=== PATIENT | male | born 1980 | race Caucasian/White ===

== ENCOUNTER → 2019-02-10 09:12 | Outpatient (CLI) | payer SELFPAY ==
[2019-02-10 09:59] LABS: Apearance,Urine Clear (Clear); Bilirubin,Urine Negative (Negative); Blood, Urine Trace (Negative); Color,Urine Yellow (Yellow); Glucose,Urine (UA) Negative (Negative); Ketones,Urine Negative (Negative); Protein,Urine Negative (Negative); Specific Gravity, Urine 1.015 (1.005-1.030); UTC Leukocyte Esterase,Urine Negative (Negative); UTC Nitrate,Urine Negative (Negative); Urobilinogen,Urine 0.2 EU/dl (0.2)
== END ==
PROVIDERS: Visit Provider Nurse Practitioner Family
DX: Z02.4 Encounter for examination for driving license (principal)
CPT/HCPCS: 81003

== ENCOUNTER → 2021-01-15 09:13 | Outpatient (CLI) | payer SELFPAY | PROVIDERS: PCP Family Medicine; Visit Provider Nurse Practitioner Family | DX: Z02.4 Encounter for examination for driving license (principal) ==

== ENCOUNTER → 2021-10-23 10:59 | Outpatient (CLI) | payer BC, SELFPAY ==
--- NOTE | 2021-10-23 11:13 | XR_ITS ---
FINAL REPORT CLINICAL HISTORY: CHEST PAIN, UNSPECIFIED TYPE, doesnt smoker, pt dips, chest pain to center of chest FINDINGS: Two views of the chest were obtained. The heart size and pulmonary vascularity are within normal limits. The mediastinum is normal. No acute pulmonary abnormality is identified. There is no pneumothorax. The bony thorax is intact. IMPRESSION: No active cardiopulmonary disease. Reviewed, Interpreted and Dictated by Brian Stanley III, MD Transcribed by Devante Whaley Authenticated by Brian Stanley III, MD on 10/23/2021 12:25:20 PM [facility]
== END ==
PROVIDERS: PCP Family Medicine; Visit Provider Family Medicine
DX: R07.9 Chest pain, unspecified (principal)
CPT/HCPCS: 71046

== ENCOUNTER → 2021-10-24 08:16 | Outpatient (CLI) | payer BC, SELFPAY ==
--- NOTE | 2021-10-24 | CA_ITS ---
APPROVED REPORT Exam: Exercise Treadmill Technologist: Bibi Beard, Ht: 5 ft 9 in Wt: 142 lbs BSA: 1.79 m2 HR: 62 bpm BP: 117/80 mmHg Medical History Medications: Prednisone,,,,, Multivitamin,,,,, Cardiac Risk Factors: FHX of CAD Stress Test Details Test: Dena HR Resting HR: 34 bpm Max Heart Rate (APMHR): 177 bpm Max HR Achieved: 183 bpm Target HR (85% APMHR): 150 bpm % of APMHR: 103 Recovery HR: 160 bpm BP Resting BP: 120/79 mmHg Max BP: 167/77 mmHg Recovery BP: 165.0/90.0 mmHg ECG Clinical Exercise duration: 11:50 min Highest Stage Achieved: Exercise capacity: 12.8 METs Stress ECG Conclusion During dena protocol pt experinced chest tightness with peak exercised. SOA noted. PVCs noted. In addition, upsloping ST depression noted in anterior leads as exercise intensity increased along with exercise associated PVCs. I would consider this a positive stress test for ischemia risk. Test Summary RECOVERY 05:36 0.0 0.0 107 . 133/ 69 . . REST . . . . . . . Standing REST 14:12 0.0 0.0 34 . 120/ 79 . . Stage 1 01:00 10.0 1.7 96 . . . . Stage 1 02:00 10.0 1.7 99 . . . . Stage 1 03:00 10.0 1.7 101 . 124/ 79 . . Stage 2 01:00 12.0 2.5 116 . . . . Stage 2 02:00 12.0 2.5 115 . . . . Stage 2 03:00 12.0 2.5 117 . 132/ 80 . . Stage 3 01:00 14.0 3.4 138 . . . . Stage 3 02:00 14.0 3.4 143 . 145/ 85 . . Stage 3 03:00 14.0 3.4 147 . 145/ 85 . . Stage 4 01:00 16.0 4.2 168 . . . . Stage 4 02:00 16.0 4.2 176 . . . . Stage 4 02:50 16.0 4.2 181 . . . Stop exercise at 11:50 RECOVERY 01:00 0.0 0.0 160 . 165/ 90 . . RECOVERY 02:00 0.0 0.0 123 . 165/ 90 . . RECOVERY 03:00 0.0 0.0 121 . 167/ 77 . . RECOVERY 04:00 0.0 0.0 106 . 159/ 73 . . RECOVERY 05:00 0.0 0.0 102 . 156/ 72 . . RECOVERY 05:36 0.0 0.0 107 . 133/ 69 . . Electronically signed by : Valeriy Robison MD 10/25/2021 12:32:40
== END ==
PROVIDERS: PCP Family Medicine; Visit Provider Family Medicine
DX: R07.9 Chest pain, unspecified (principal)
CPT/HCPCS: 93017

== ENCOUNTER → 2021-11-03 12:04 | Outpatient (CLI) | payer BC, SELFPAY ==
[2021-11-03 13:16] LABS: Basophils # 0.1 K/mm3 (0-0.2); Basophils % 0.9 % (0.1-2.0); Eosinophils # 0.1 K/mm3 (0.0-0.4); Eosinophils % 1.5 % (0.1-12.0); Hematocrit 42.4 % (42.0-52.0); Hemoglobin 13.9 g/dL (14.1-18.0); Lymphocytes # 1.9 K/mm3 (0.7-4.5); Lymphocytes % 33.2 % (10-50); Mean Corpuscular HGB Conc 32.8 g/dL (31.8-35.4); Mean Corpuscular Hemoglobin 30.7 pg (27.0-31.2); Mean Corpuscular Volume 93.6 fl (80-94); Mean Platelet Volume 8.3 fl (7.4-10.4); Monocytes # 0.4 K/mm3 (0.1-1.0); Monocytes % 7.6 % (1.7-9.3); Neutrophils # 3.3 K/mm3 (1.8-7.8); Neutrophils % 56.7 % (37.0-80.0); Platelet Count 322 K/mm3 (142-424); Red Blood Count 4.53 M/mm3 (4.60-6.20); Red Cell Distribution Width 13.9 % (11.5-17.5); White Blood Count 5.7 K/mm3 (4.8-10.8)
[2021-11-03 16:09] LABS: Anion Gap 11.2 mEq/L (5-15); Blood Urea Nitrogen 8 mg/dl (9-20); Calcium 9.9 mg/dl (8.4-10.2); Carbon Dioxide 27 mmol/L (22.0-30.0); Chloride 103 mmol/L (98-107); Estimated Glomerular Filt Rate 147 ml/min (>60); GFR (African American) 178 ML/MIN (>60); Glucose 96 mg/dl (74-100); Potassium 4.2 mmoL/L (3.5-5.1); Sodium 137 mmol/L (136-145)
== END ==
PROVIDERS: Visit Provider Internal Medicine Cardiovascular Disease
DX: Z01.812 Encounter for preprocedural laboratory examination (principal); Z11.52 Encounter for screening for COVID-19; R07.9 Chest pain, unspecified; I20.9 Angina pectoris, unspecified; R94.31 Abnormal electrocardiogram [ECG] [EKG]; R94.39 Abnormal result of other cardiovascular function study; Z72.0 Tobacco use
CPT/HCPCS: 36415; 80048; 85025; C9803; U0003; U0005

== ENCOUNTER 2021-11-05 07:44 | Day surgery (SDC) | payer BC, SELFPAY ==
[2021-11-05] VITALS (13 sets, daily range): BP systolic 98–140; BP diastolic 53–86; PULSE 52–80; RESP 17–20; TEMP 36.6; O2SAT 95–100; BMI 20.3
--- NOTE | 2021-11-05 | IR_ITS ---
APPROVED REPORT Patient Location: Outpatient Foundry Manager: SEJAL Viveros RT (R) PROCEDURES Left heart catheterization Selective coronary angiogram Left ventriculogram INDICATION Abnormal stress test Informed consent was obtained prior to the procedure. COMPLICATIONS None Estimated Blood Loss: Less than 10 mls TECHNIQUE One percent lidocaine used to anesthetize the right anterior aspect of the wrist. The right radial artery was accessed via the Seldinger technique. A 6 Frisian sheath was placed in the right radial artery. 2.5 mg of verapamil, 800 mcg of nitroglycerin, 1mg Lidocaine and 5000 U Heparin were given through the arterial sheath. The papa catheter was also used to perform left heart catheterization, left ventriculogram and selective coronary angiogram. At the end of the procedure the sheath was removed good hemostasis was achieved using Traclet band, patient was transferred to the postop holding area in stable condition. ANGIOGRAPHIC RESULTS The left main artery Normal The left anterior descending artery Normal The circumflex artery Normal The right coronary artery Dominant normal The REN ventriculogram reveals Normal 65% The left ventricular end-diastolic pressure Less than 10 mmHg IMPRESSION Normal coronary arteries Normal ejection fraction Normal left ventricular end-diastolic pressure PLAN 1. Evaluation of noncardiac symptoms Electronically signed by : Yash Hillman MD 11/05/2021 10:03:57
--- NOTE | 2021-11-05 07:49 | CA_ITS ---
APPROVED REPORT EXAM: Comprehensive 2D, Doppler, and color-flow Echocardiogram Clinical Account Liaison: Isa Hagen, RCS, RVS Ht: 5 ft 9 in Wt: 138lbs BSA: 1.76 BP: 115/80 mmHg Indications: CP, ABN EST, ABN EKG, Hx- COVID 03/2021, smokeless tobacco 2D Dimensions LVDd 5.48 cm LVEF (Visual) 58.10 % LVDs 3.78 cm LA Volume 46.20 mL Aortic Root 2.69 cm LA Volume Index 26.30 mL/m2 (M/F) 16-34 Left Atrium 3.08 cm LVOT 1.90 cm (M/F) 1.5-2.5 M-Mode Dimensions RVDd 2.90 cm (0.9-2.6) LA Diam 3.70 cm (1.9-4.0) LVDd 4.79 cm (3.5-5.7) Ao Diam 2.87 cm (2.0-3.7) LVDs 3.33 cm (3.5-5.7) IVSd 0.97 cm (0.6-1.1) PWd 0.93 cm (0.6-1.1) EF (Teich) 57.90% EPSs 0.29 cm FS 30.50% EDV (Teich) 107.00 mL TAPSE 3.07 (<1.7) ESV (Teich) 45.10 mL LV Diastology E Decel Time 193.00 (160-240 msec) E/A Ratio 2.30 MED E' 13.10 (< 7 cm/sec) MED A' 13.30 cm/s E'/MED E' Ratio 7.82 (>14) LAT E' 15.50 (<10 cm/sec) LAT A' 9.30 cm/s E/LAT E' Ratio 6.61 (>14) Aortic Valve LVOT Max 119.00 (70-110 cm/s) LVOT VTI 23.99 cm AoV Peak Arturo. 137.00 (50-130 cm/s) AO Peak GR. 7.50 mmHg AO Mean GR. 3.80 (<5 mmHg) AO VTI 28.05 (18-25 cm) ANJUM (VTI) 2.42 (2.5-4.5 cm2) Mitral Valve MV A Velocity 45.00 (40-130 cm/s) E/A Ratio 2.30 MV Decel. Time 193.00 (160-240 ms) Pulmonary Valve PV Peak Velocity 132.00 (50-150 cm/s) Tricuspid Valve TR P. Velocity 145.00 cm/s RAP Estimate 10.00 mmHg RVSP 18.40 mmHg Left Ventricle Left atrium normal size, left ventricle is normal size, there is no concentric left ventricular hypertrophy, visually estimated ejection fraction 55% with no regional wall motion abnormality, diastolic parameters are within normal range. Right Ventricle Right atrium and right ventricle are normal size and contractility. Aortic Valve Aortic valve is grossly normal and there is no aortic stenosis or aortic insufficiency. Mitral Valve Mitral valve grossly normal, there is trace mitral regurgitation. Tricuspid Valve Tricuspid valve grossly normal, there is trace tricuspid regurgitation tricuspid regurgitation jet velocity is inadequate for calculation of the right ventricular systolic pressure. Pulmonic Valve Pulmonic valve is poorly visualized. Great Vessels Aortic root is normal size. Inferior vena cava normal size with normal spectral collapse. Pericardium No significant pericardial effusion noted. Conclusion 1. Normal left ventricular size preserved left ventricular systolic function, visually estimated ejection fraction 55% with no regional wall motion abnormality, diastolic parameters are within normal range. 2. Trace mitral and tricuspid regurgitation. 3. No significant pericardial effusion noted. 4. Inferior vena cava is normal size with normal inspiratory collapse. Electronically signed by : Walter Crowe MD 11/05/2021 10:18:37
== END 2021-11-05 13:34 | disposition home or self-care (01) ==
LOC: CATHLAB 07:46
PROVIDERS: PCP Family Medicine; Visit Provider Internal Medicine
DX: I20.9 Angina pectoris, unspecified (principal); R07.9 Chest pain, unspecified; R94.31 Abnormal electrocardiogram [ECG] [EKG]; R94.39 Abnormal result of other cardiovascular function study; F17.210 Nicotine dependence, cigarettes, uncomplicated
CPT/HCPCS: 93306; 93458; 99152; C1725; C1769; J1644; Q9967

== ENCOUNTER → 2021-11-13 07:06 | Outpatient (CLI) | payer BC, SELFPAY ==
--- NOTE | 2021-11-13 07:34 | MR_ITS ---
FINAL REPORT CLINICAL HISTORY: ABNORMAL FINDINGS ON MRI. HEADACHE. ABNORMAL MRI 2017. LIGHTHEADEDNESS AND BLURRED VISION. 12ML PROHANCE GIVEN. COMPARISON: 01/29/2017 FINDINGS: Multiplanar MR imaging of the brain was performed without and with contrast. Again identified is an ovoid area of increased T2 signal in the medial right cerebellum measuring 16 x 12 mm in maximum axial dimension. This is stable in size and appearance. There is no evidence of contrast enhancement. No abnormal extra-axial fluid collection is seen. The ventricular size is within normal limits. There is no evidence of shift of the midline structures. The posterior fossa and brainstem have an unremarkable appearance. No area of abnormal restricted diffusion is identified. Normal major vessel vascular flow voids are noted. There is mucosal thickening in the sinuses. IMPRESSION: Stable area of increased signal in the medial right cerebellum. Differential diagnosis would include sequela of prior infarct versus low-grade neoplasm. Additional follow-up may be helpful to confirm continued stability. Reviewed, Interpreted and Dictated by Brian Stanley III, MD Transcribed by Zara Jackson Authenticated by Brian Stanley III, MD on 11/13/2021 09:50:[address] [facility]
== END ==
PROVIDERS: PCP Family Medicine; Visit Provider Family Medicine
DX: R90.89 Other abnormal findings on diagnostic imaging of central nervous system (principal)
CPT/HCPCS: 70553; A9576

== ENCOUNTER → 2022-02-13 14:07 | Outpatient (CLI) | payer BC, SELFPAY | PROVIDERS: PCP Family Medicine; Visit Provider Physician Assistant | DX: U07.1 COVID-19 (principal) | CPT/HCPCS: C9803; U0003; U0005 ==

== ENCOUNTER 2022-07-06 09:23 | Emergency (ER) | payer BC, SELFPAY ==
--- NOTE | 2022-07-06 09:42 | EXP.UTC ---
Discharge Plan Disposition Patient Disposition: Home, Self-Care Condition: Good Prescriptions Prescriptions: New fluconazole [Diflucan] 150 mg tablet 150 mg PO ONCE Qty: 1 2RF nystatin 100,000 unit/gram cream 1 applic topical BID 14 Days Qty: 30 0RF No Action Ubrelvy 100 mg tablet 100 mg PO ONCE PRN (Reason: migraine headache) Qty: 10 3RF Rx Instructions: Take 1 tablet at onset of headache. May repeat after 2 hours if symptoms persist. Max 2/24 hours. Max 4/week ubrogepant [Ubrelvy] 100 mg tablet 0RF multivitamin [Multiple Vitamins] Tablet 1 tab PO DAILY Qulipta 60 mg tablet 60 mg PO DAILY Qty: 30 6RF Nurtec ODT 75 mg tablet,disintegrating 75 mg PO ONCE MDD 2 tabs PRN (Reason: migraine headache) Qty: 8 6RF omeprazole 40 MG capsule,delayed release(DR/EC) 40 mg PO QDAY Rx Instructions: swallow whole; do not crush, chew, dissolve, or cut/break Referrals Follow up/Referrals: Ritu Monteiro MD [Primary Care Provider] - See instructions Activity Restrictions/Add. Instructions Additional Instructions/Restrictions: Drink plenty of fluids. Take tylenol for pain. Take the medications as directed. Use the nystatin cream as directed. Please use it for 48 hours after your symptoms have resolved. Follow up with your regular doctor. GO TO THE ER FOR ANY WORSENING SYMPTOMS Finish the antibiotics that you are already on. Clinical Impressions Clinical Impression: Candidiasis of skin Stand Alone Forms Stand Alone Forms: Work/School Release Instructions Patient Instructions: Fluconazole, Yeast Infection-Skin, Nystatin Topical Discharge ED Provider: Parth Guerra [facility] General Stated complaint: Burning when urination Time Seen by Provider: 07/06/22 09:42 History of Present Illness Provider Complaint: He states that he has had dysuria, urinary frequency and low back discomfort for the past 5 days. He was started on antibiotics by his pcp 3 days ago. He states that most of his symptoms are better, but now he is having burning and redness around his urinary meatus. Related Data Home Medications Medication Instructions Recorded Confirmed multivitamin (Multiple Vitamins 1 tab PO DAILY Supplement 10/31/21 03/05/22 tablet) omeprazole 40 mg capsule,delayed 40 mg PO QDAY stomach 11/05/21 03/05/22 release Previous Rx's Medication Instructions Recorded Nurtec ODT 75 mg disintegrating 75 mg PO ONCE PRN migraine 01/01/22 tablet (rimegepant) headache #8 tabs atogepant 60 mg tablet (Qulipta) 60 mg PO DAILY Chronic intractable 01/01/22 migraine #30 tabs ubrogepant 100 mg tablet (Ubrelvy) 100 mg PO ONCE PRN migraine 03/05/22 headache #10 tabs fluconazole 150 mg tablet 150 mg PO ONCE #1 tab 07/06/22 (Diflucan) nystatin 100,000 unit/gram topical 1 applic topical BID 14 days #30 07/06/22 cream grams Allergies Allergy/AdvReac Type Severity Reaction Status Date / Time tetracycline [TETRACYCLINE] Allergy Unknown Verified 07/06/22 11:08 [facility] Medical History Raynauds disease Social History Smoking Status: Never smoker alcohol intake: current current occupational status: employed Travel in the last 8 weeks: None household members: spouse ROS Obtained: Yes All systems reviewed & no additional complaints except as documented Constitutional Constitutional: Denies chills and Denies fever(s) Eyes Eyes: Denies eye discharge ENT Ears, Nose, Mouth, and Throat: Denies dizziness, Denies otalgia and Denies sore throat Cardiovascular Cardiovascular: Denies chest pain Respiratory Respiratory: Denies shortness of breath, Denies chest congestion, Denies cough, Denies stridor and Denies wheezing Gastrointestinal Gastrointestingal: Denies nausea or vomiting Genitourinary Male Genitourinary: Reports as per H
[2022-07-06 11:05] VITALS: BP 136/81; PULSE 78; RESP 18; TEMP 36.4; O2SAT 98; BMI 20.7
[2022-07-06 11:09] LABS: Apearance,Urine Clear (Clear); Bilirubin,Urine Negative (Negative); Blood, Urine Negative (Negative); Color,Urine Yellow (Yellow); Glucose,Urine (UA) Negative (Negative); Ketones,Urine Negative (Negative); Protein,Urine Negative (Negative); UTC Leukocyte Esterase,Urine Negative (Negative); UTC Nitrate,Urine Negative (Negative); Urobilinogen,Urine 0.2 EU/dl (0.2)
[2022-07-06 11:32] VITALS: BP 136/81; PULSE 78; RESP 18; TEMP 36.4
== END 2022-07-06 11:32 | disposition home or self-care (01) ==
PROVIDERS: Emergency Provider Nurse Practitioner Family; PCP Family Medicine
DX: B37.2 Candidiasis of skin and nail (principal)
CPT/HCPCS: 81003; 87086; 99212; G0463

== ENCOUNTER → 2022-12-04 10:08 | Outpatient (CLI) | payer BC, OTHER, SELFPAY ==
[2022-12-04 12:29] LABS: Alanine Aminotransferase 25 U/L (12-78); Albumin Level 4.5 g/dl (3.5-5.0); Albumin/Globulin Ratio 1.8 (1.1-1.8); Alkaline Phosphatase 86 U/L (38-126); Anion Gap 11.3 mEq/L (5-15); Aspartate Amino Transferase 33 U/L (17-59); Bilirubin,Total 0.6 mg/dl (0.2-1.3); Blood Urea Nitrogen 10 mg/dl (9-20); Calcium 9.7 mg/dl (8.4-10.2); Carbon Dioxide 30 mmol/L (22.0-30.0); Chloride 102 mmol/L (98-107); Estimated Glomerular Filt Rate 146 ml/min (>60); GFR (African American) 177 ML/MIN (>60); Globulin 2.5 g/dL (1.3-3.2); Glucose 81 mg/dl (74-100); Potassium 4.3 mmoL/L (3.5-5.1); Sodium 139 mmol/L (136-145)
== END ==
PROVIDERS: PCP Family Medicine; Visit Provider Specialist
DX: G43.909 Migraine, unspecified, not intractable, without status migrainosus (principal); K90.0 Celiac disease; R90.89 Other abnormal findings on diagnostic imaging of central nervous system
CPT/HCPCS: 36415; 80053

== ENCOUNTER → 2022-12-08 09:40 | Outpatient (CLI) | payer BC, OTHER, SELFPAY ==
--- NOTE | 2022-12-08 | XR_ITS ---
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 There is no acute fracture or dislocation. No radiopaque foreign body is identified. IMPRESSION: No foreign body identified. Reviewed, Interpreted and Dictated by Landon Hester MD Transcribed by Zara Jackson Authenticated and [facility]
--- NOTE | 2022-12-08 09:41 | MR_ITS ---
FINAL REPORT CLINICAL HISTORY: Abnormal finding on brain MRI frequent headaches blurry vision when headaches appear prior lesion on brain 13 ml prohance COMPARISON: 2016; 2021 FINDINGS: Multiplanar MR imaging of the brain was performed without and with contrast. The midline structures are intact. There is no Chiari malformation. There is an ovoid focus of abnormal signal in the medial right cerebellar hemisphere measuring 1.3 cm. This is best seen on image 13 of series 5 and is essentially stable. The remainder of the brain is homogeneous. There is no restricted diffusion. There is mild mucoperiosteal thickening in the bilateral maxillary sinuses and ethmoid air cells. 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 Low grade glioma is less likely given the stability over time. Reviewed, Interpreted and Dictated by Landon Hester MD Transcribed by Devante Whaley Authenticated and [facility]
== END ==
PROVIDERS: PCP Family Medicine; Visit Provider Specialist
DX: R90.89 Other abnormal findings on diagnostic imaging of central nervous system (principal)
CPT/HCPCS: 70200; 70553; A9576

== ENCOUNTER 2022-12-31 09:44 | Outpatient (CLI) | payer SELFPAY | END 2022-12-31 10:57 | disposition home or self-care (01) | PROVIDERS: PCP Family Medicine; Visit Provider Nurse Practitioner Family | DX: Z02.4 Encounter for examination for driving license (principal) ==

== ENCOUNTER 2023-03-19 09:00 | Outpatient (RCR) | payer BC, OTHER, SELFPAY ==
--- NOTE | 2023-03-09 09:56 | HMH.PTOPEV ---
PT Outpatient Evaluation Rehab PT Outpatient Evaluation Start: 03/09/23 09:40 Freq: Status: Active Protocol: Document 03/09/23 09:40 URBAN (Rec: 03/09/23 09:56 URBAN [id number]) E-signed By Hector Castro, PT Outpatient Therapy Subjective History Subjective History Patient is a 43 year old male presenting to outpatient PT with reports of acute R knee pain starting 02/13. Patient reports that he was completing a PT test for work, which involved running on a track when symptoms started. No recent imaging to report. Slightly decreased symptoms with addition of brace. Patient reports that prior to injury he was a daily runner. Suspected overuse injury. Comorbiditities include hx of small bowel obstruction with subsequent surgery x 3, brain lesion and hx of heart cath. Chief Complaint Pain,Swelling,Gives out/ Unstable Symptom Type Ache,Burning Symptoms Relieved By Rest/Positioning,Ice, Prescription Meds Symptoms Aggravated By Standing,Physical Activity, Walking Prior Functional Limitations None Current Functional Limitations Standing,Squatting,Recreation Activity,Walking,Stairs Symptom Description Intermittent Level of pain today (0-10) 1 Pain scale - at its best (0-10) 0 Pain scale - at its worst (0-10) 5 Hip/Knee Eval Gait Observation General Gait Pattern Observation No Deviations/Normal Assistive Device Assistive Devices None / NA Palpation Tenderness right Knee Palpation Finding Tenderness Knee Palpation Overall Comment MJL 2/4, patellar/quad tendon 2/4 MMT Hip Flexion Strength Grade 4 Good Hip Abduction Strength Grade 5 Normal Hip Adduction Strength Grade 4 Good Hip Extension Strength Grade 4- Good- Hip External Rotation Strength Grade 4- Good- Hip Internal Rotation Strength Grade 4- Good- Knee Extension Strength Grade 4 Good Knee Flexion Strength Grade 5 Normal ROM Hip ROM Reason Not Measured Within Functional Limits Knee ROM Reason Not Measured Within Functional Limits Special Tests Knee Anterior Brittney Test Negative Right Knee Pivot Shift Test Negative Right
== END 2023-03-19 09:05 | disposition home or self-care (01) ==
LOC: PT 09:00
PROVIDERS: PCP Family Medicine; Visit Provider Family Medicine
DX: M25.561 Pain in right knee (principal)
CPT/HCPCS: 97110; 97163; 97530

== ENCOUNTER 2023-06-11 08:12 | Day surgery (SDC) | payer BC, OTHER, SELFPAY ==
[2023-06-08 13:41] VITALS: BMI 21.9
[2023-06-11 08:29] VITALS: BP 145/78; PULSE 86; RESP 16; TEMP 36.1; O2SAT 97
--- NOTE | 2023-06-11 09:16 | P.PNANES_ITS ---
[facility] Disclaimer: The information contained in this section may have been updated after the patient was seen, as this information can be updated by other users. 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 Surgical History History of dental surgery History of intestinal surgery Family History Other Cancer Coronary artery disease Diabetes Hyperlipidemia Hypertension Social History Smoking Status: Never smoker alcohol intake: former substance use type: denies use current occupational status: employed Travel in the last 8 weeks: None household members: spouse [facility] Anesthesia Checklist Patient Identification Patient Identification: Arm Band and Verbal (Name & ) Structural Data Admitted From: Home Planned Operative Procedure/s: Colonoscopy Consent for Planned Operative Procedure(s) Verified: Yes NPO Status Verified Time NPO: 00:00 Additional verifications Anesthesia Reactions: No Airway Assessment Mallampati Score:: Class II C-Spine Mobility Assessed: Yes TMJ Mobility Assessed: Yes Dentition: Good Dentition Neurological Assessment Level of Consciousness: Awake Hx Seizures: No Numbness or tingling in extremities: No Anesthesia Plan Anesthesia Risk discussed: Yes Anesthesia Plan: Verified ASA Class: II Anesthesia Type: MAC
[2023-06-11 09:27] VITALS: O2SAT 100
--- NOTE | 2023-06-11 09:50 | HMH.SCOPE ---
Procedure: Date: 06/11/23 Patient Date of :: 1980 Procedure Performed:: Total colonoscopy to terminal ileum Indications:: Patient is a 43-year-old male. Has a history of celiac disease. He has had several bowel obstructions in the past and has had 3 laparotomies. He was ultimately diagnosed with celiac disease. He did have a colonoscopy thinks about 9 years ago. There were no polyps. He was scheduled for screening colonoscopy. Performing Provider:: Brian Yao MD Referring Provider:: Ramsey Monteiro MD Sedation:: MAC sedation Procedure:: Patient history was obtained and appropriate physical examination was performed. Patient's medications and allergies were reviewed. Informed consent was obtained after explaining the benefits, alternatives, and risks of the procedure including, but not limited to, bleeding, perforation, missed lesions, and adverse reaction to anesthesia medications. Patient was transported to endoscopy procedure room. Patient was connected to monitoring devices. Throughout the procedure the patient's blood pressure, pulse, and oxygen saturations were monitored continuously. Patient identification and planned procedure were verified by the staff. Patient was positioned in lateral decubitus position. Digital anorectal exam was performed. Variable stiffness Olympus colonoscope was inserted and advanced under direct visualization to the cecum. Adequacy of the colonic preparation was noted. The colonoscope was advanced a short distance into the terminal ileum. The colonoscope was then slowly withdrawn while carefully examining the color, texture, anatomy, and integrity of the mucosoa circumferentially. Within the rectum retroflexion was performed. Colonoscope was then withdrawn. Findings:: Normal colonoscopy to terminal ileum Recommendations:: Repeat colonoscopy up to 10 years. Likely recommend 7-10 given history history. Complications:: None immediately apparent Estimated blood obtained (mL): 0 Colonoscopy Component Colonoscopy Component Was a colonoscopy performed during today's procedure?: Yes Recommended follow up colonoscopy of at least 10 years?: Yes
[2023-06-11 09:53] VITALS: BP 88/52; PULSE 69; RESP 18; TEMP 36.9; O2SAT 96
[2023-06-11 10:03] VITALS: BP 87/52; PULSE 69; RESP 18; O2SAT 96
[2023-06-11 10:13] VITALS: BP 102/69; PULSE 78; RESP 18; O2SAT 97
[2023-06-11 10:23] VITALS: BP 111/73; PULSE 81; RESP 18; O2SAT 97
== END 2023-06-11 10:23 | disposition home or self-care (01) ==
PROVIDERS: PCP Family Medicine; Visit Provider Surgery
PROC: 0DJD8ZZ Inspection of Lower Intestinal Tract, Via Natural or Artificial Opening Endoscopic (ICD-10-PCS; CPT 45378; principal; 2023-06-11 09:30)
DX: Z12.11 Encounter for screening for malignant neoplasm of colon (principal); K90.0 Celiac disease
CPT/HCPCS: 45378; J2704

== ENCOUNTER 2023-08-26 18:22 | Emergency (ER) | payer BC, OTHER, SELFPAY ==
--- NOTE | 2023-08-26 18:28 | XR_ITS ---
PROCEDURE INFORMATION: Exam: XR Right Forearm Exam date and time: 08/26/2023 6:35 PM Age: 43 years old Clinical indication: Injury or trauma; Fall; Blunt trauma (contusions or hematomas); Arm, lower; Right; Patient HX: Patient fell off bucket onto [address]. ; Additional info: Fall, arm pain TECHNIQUE: Imaging protocol: Radiologic exam of the right forearm. Views: 2 views. COMPARISON: No relevant prior studies available. FINDINGS: Bones/joints: Nondisplaced right radial head fracture. Soft tissues: Normal. IMPRESSION: Nondisplaced right radial head fracture.
--- NOTE | 2023-08-26 18:28 | XR_ITS ---
PROCEDURE INFORMATION: Exam: XR Right Elbow Exam date and time: 08/26/2023 6:36 PM Age: 43 years old Clinical indication: Injury or trauma; Fall; Blunt trauma (contusions or hematomas); Elbow; Right; Patient HX: Patient fell off bucket onto [place] [address]. ; Additional info: Fall, right elbow pain TECHNIQUE: Imaging protocol: Radiologic exam of the right elbow. Views: 3 or more views. COMPARISON: CR XR FOREARM RT 2V 08/26/2023 6:35 PM FINDINGS: Bones/joints: Nondisplaced right radial head fracture. Large elbow hemarthrosis. Soft tissues: Normal. IMPRESSION: 1. Nondisplaced right radial head fracture. 2. Large elbow hemarthrosis.
--- NOTE | 2023-08-26 18:28 | XR_ITS ---
PROCEDURE INFORMATION: Exam: XR Left Forearm Exam date and time: 08/26/2023 6:32 PM Age: 43 years old Clinical indication: Injury or trauma; Fall; Blunt trauma (contusions or hematomas); Arm, lower; Left; Patient HX: Patient fell off of bucket onto [address] driveway. ; Additional info: Fall, arm pain TECHNIQUE: Imaging protocol: Radiologic exam of the left forearm. Views: 2 views. COMPARISON: CR XR ELBOW LT MIN 3V 08/26/2023 6:31 PM FINDINGS: Bones/joints: Normal. Soft tissues: Normal. IMPRESSION: No acute findings.
--- NOTE | 2023-08-26 18:28 | XR_ITS ---
PROCEDURE INFORMATION: Exam: XR Left Elbow Exam date and time: 08/26/2023 6:31 PM Age: 43 years old Clinical indication: Injury or trauma; Fall; Blunt trauma (contusions or hematomas); Elbow; Left; Patient HX: Patient fell off of bucket onto gravel driveway. ; Additional info: Fall, left elbow pain TECHNIQUE: Imaging protocol: Radiologic exam of the left elbow. Views: 3 or more views. COMPARISON: No relevant prior studies available. FINDINGS: Bones/joints: Normal. Soft tissues: Normal. IMPRESSION: No acute findings.
[2023-08-26 18:30] VITALS: BP 127/84; PULSE 91; RESP 16; TEMP 36.8; O2SAT 99; BMI 22.4
--- NOTE | 2023-08-26 18:46 | ED_ITS ---
Discharge Plan Disposition Patient Disposition: Home, Self-Care Condition: Good Prescriptions Prescriptions: New ibuprofen [IBU] 800 mg tablet 800 mg PO Q8HP PRN (Reason: Moderate Pain) Qty: 30 0RF No Action multivitamin [Multiple Vitamins] Tablet 1 tab PO DAILY Emgality Pen 120 mg/mL pen injector 120 mg SQ QMONTH Qty: 1 11RF Ubrelvy 100 mg tablet 100 mg PO ONCE Qty: 10 11RF Rx Instructions: 1 tabs @ onset of symptoms. May repeat after 2 hours if symptoms persist. Max 2 tabs per 24 hours. esomeprazole magnesium 40 mg capsule,delayed release(DR/EC) 40 mg PO DAILY Patient Comments: TAKE 1 CAPSULE BY MOUTH ONCE DAILY Referrals Follow up/Referrals: Ritu Monteiro MD [Primary Care Provider] - See instructions Brennen Fleming DO [Staff Physician] - See instructions Activity Restrictions/Add. Instructions Additional Instructions/Restrictions: Rest the extremity, apply ice for 15 minutes as tolerated three or four times per day, Elevate the extremity as tolerated while you are resting. Take ibuprofen for pain. I sent in a prescription to your pharmacy. Follow up with Dr. Fleming (orthopedics). I put in a referral but you need to call his office and schedule an appointment. Follow up with your regular doctor. GO TO THE ER FOR ANY WORSENING SYMPTOMS Clinical Impressions Clinical Impression: Closed fracture of head of right radius, Left elbow contusion Stand Alone Forms Stand Alone Forms: Work/School Release Instructions Patient Instructions: How to Use a Sling, Elbow Fracture, DI for Elbow Fracture, How to Take Care of Your Splint Discharge ED Provider: Parth Guerra [facility] General Stated complaint: AO [id number] inj both elbows Time Seen by Provider: 08/26/23 18:46 History of Present Illness Provider Complaint: He states that he fell off of a bucket while working at his home. He came down backwards on both of his elbows. He c/o bilateral elbow and bilateral forearm pain. He states that his left arm hurts worse than his right. He denies any back pain, neck pain, or head injury. Related Data Home Medications Medication Instructions Recorded Confirmed multivitamin (Multiple Vitamins 1 tab PO DAILY Supplement 10/31/21 08/26/23 tablet) esomeprazole magnesium 40 mg 40 mg PO DAILY 08/26/23 08/26/23 capsule,delayed release Previous Rx's Medication Instructions Recorded galcanezumab-gnlm 120 mg/mL 120 mg SQ QMONTH Migraine Headache 04/26/23 subcutaneous pen injector #1 mL (Emgality Pen) ubrogepant 100 mg tablet (Ubrelvy) 100 mg PO ONCE Migraine Headache 04/26/23 #10 tabs ibuprofen 800 mg tablet (IBU) 800 mg PO Q8HP PRN Moderate Pain 08/26/23 #30 tabs Allergies Allergy/AdvReac Type Severity Reaction Status Date / Time tetracycline [TETRACYCLINE] Allergy Unknown Verified 08/26/23 18:52 [facility] Disclaimer: The information contained in this section may have been updated after the patient was seen, as this information can be updated by other users. 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 Surgical History History of dental surgery History of intestinal surgery Family History Other Cancer Coronary artery disease Diabetes Hyperlipidemia Hypertension Social History Smoking Status: Never smoker alcohol intake: former substance use type: denies use current occupational status: employed Travel in the last 8 weeks: None household members: spouse ROS Obtained: Yes All systems reviewed & no additional complaints except as documented Constitutional Constitutional: Denies chills and Denies fever(s) Eyes Eyes: Denies eye discharge ENT Ears, Nose, Mouth, and Throat: Denies dizziness, Denies otalgia and Denies sore throat Cardiovascular Cardiovascular: Denies chest pain Respiratory Respiratory: Denies shortness of breath, Denies chest congestion, Denies cough, Denies stridor and Denies wheezing Gastrointestinal Gastrointestingal: Denies nausea or vomiting Musculoskeletal Musculoskeletal: Reports as per HPI Integumentary/Breasts Skin/Breast: Denies rash Neurologic Neurologic: Denies dizziness and Denies paresthesias Allergic/Immunologic Allergic/Immunologic: Denies wheezing Physical Exam General General appearance: alert and in no apparent distress Head Head exam: atraumatic, normocephalic and normal inspection Eye Eye exam: Present normal appearance, PERRL and EOMI ENT ENT exam: Present normal exam, normal oropharynx, mucous membranes moist, TM's normal bilaterally and normal external ear exam Neck Neck exam: Present normal inspection, full ROM and trachea midline; Absent meningismus or lymphadenopathy Chest Chest inspection: Present normal inspection and symmetric chest wall rise; Absent tenderness Respiratory Respiratory exam: Present normal lung sounds bilaterally; Absent respiratory distress Cardiovascular Cardiovascular exam: Present regular rate and normal rhythm; Absent JVD Abdominal Exam Abdominal exam: Present soft and normal bowel sounds; Absent distention, tenderness or guarding Extremities Exam Extremities exam: Present normal capillary refill; Absent calf tenderness Expanded Upper Extremity Exam Right: Shoulder exam: Present normal inspection and full ROM; Absent tenderness or tenderness over AC joint Arm exam: Present normal inspection and full ROM; Absent tenderness Elbow exam: Present tenderness, swelling, pain w/ pronation/supination and tenderness over radial head; Absent full ROM, abrasion, laceration, ecchymosis, deformity, crepitus, dislocation, erythema or effusion Forearm/Wrist exam: Present normal inspection and full ROM; Absent tenderness Hand exam: Present normal inspection and full ROM; Absent tenderness Neuromotor exam: Normal wrist extension, thumb opposition, thumb IP flexion, thumb adduction and fingers 2-5 abduction Neurosensory exam: Normal radial nerve and ulnar nerve Vascular exam: Normal capillary refill, radial pulse and ulnar pulse Left: Shoulder exam: Present normal inspection and full ROM; Absent tenderness or tenderness over AC joint Arm exam: Present normal inspection and full ROM; Absent tenderness Elbow exam: Present tenderness, swelling, pain w/ pronation/supination and tenderness over radial head; Absent full ROM, abrasion, laceration, ecchymosis, deformity, crepitus, dislocation, erythema or effusion Forearm/Wrist exam: Present normal inspection and full ROM; Absent tenderness Hand exam: Present normal inspection and full ROM; Absent tenderness Neuromotor exam: Normal wrist extension, thumb opposition, thumb IP flexion, thumb adduction and fingers 2-5 abduction Neurosensory exam: Normal radial nerve and ulnar nerve Vascular exam: Normal capillary refill, radial pulse and ulnar pulse Back Exam Back exam: Present normal inspection; Absent tenderness Neurological Exam Neurological exam: Present alert and oriented X3 Psychiatric Psychiatric exam: Present normal affect and normal mood Skin Skin exam: Present warm, dry, intact and normal color Lymphatic Lymphatic Findings: no adenopathy Medical Decision Making Medical Records Medical records reviewed: No I reviewed the patient's medical records. Morales Inquiry Pt receiving controlled substance: No Orders (Tests/Meds): ORDERS Category Date Time Status XR elbow LT min 3V Stat Exams 08/26/23 18:28 Ordered XR elbow RT min 3V Stat Exams 08/26/23 18:28 Ordered XR forearm LT 2V Stat Exams 08/26/23 18:28 Ordered XR forearm RT 2V Stat Exams 08/26/23 18:28 Ordered Procedures Risk/Benefits of Procedure(s) Were Explained: Yes Orthopedic Splinting/Casting Injury #1: Side: right Upper Extremity Injury Location: upper arm, elbow and forearm Upper Extremity Immobilizer: posterior splint and applied by nurse/dr melendez Post Cast/Splinting Neuro Status: intact and no change Post Cast/Splinting Vasc Status: intact and no change Injury #2: Side: left Upper Extremity Injury Location: elbow and forearm Upper Extremity Immobilizer: sling and applied by nurse/dr melendez Post Cast/Splinting Neuro Status: intact and no change Post Cast/Splinting Vasc Status: intact and no change
[2023-08-26 19:52] VITALS: BP 127/84; PULSE 91; RESP 16; TEMP 36.8; O2SAT 99
== END 2023-08-26 19:52 | disposition home or self-care (01) ==
PROVIDERS: Emergency Provider Nurse Practitioner Family; PCP Family Medicine
DX: S52.124A Nondisplaced fracture of head of right radius, initial encounter for closed fracture (principal); S50.02XA Contusion of left elbow, initial encounter; M25.521 Pain in right elbow; M25.522 Pain in left elbow; W17.89XA Other fall from one level to another, initial encounter
CPT/HCPCS: 73080; 73090; 99212; 99214; G0463

== ENCOUNTER 2023-09-14 09:28 | Outpatient (CLI) | payer BC, OTHER, SELFPAY ==
--- NOTE | 2023-09-14 09:33 | XR_ITS ---
FINAL REPORT CLINICAL HISTORY: rt elbow pain COMPARISON: 08/26/2023 FINDINGS: Right elbow Four views were obtained. There is an age indeterminate nondisplaced fracture of the radial head. There is mild impaction of the fracture fragment. The bony alignment is normal. There is a joint effusion or hemarthrosis. IMPRESSION: Fracture as above. Reviewed, Interpreted and Dictated by Brian Stanley III, MD Transcribed by Zara Jackosn Authenticated and [facility]
== END 2023-09-14 23:59 ==
LOC: RAD 09:29
PROVIDERS: PCP Family Medicine; Visit Provider Orthopaedic Surgery
DX: M25.521 Pain in right elbow (principal); S52.121A Displaced fracture of head of right radius, initial encounter for closed fracture
CPT/HCPCS: 73080

== ENCOUNTER 2023-10-05 08:33 | Outpatient (CLI) | payer BC, OTHER, SELFPAY ==
--- NOTE | 2023-10-05 08:41 | XR_ITS ---
FINAL REPORT CLINICAL HISTORY: rt elbow pain radial head fracture Aug 26 COMPARISON: 09/14/2023 FINDINGS: Right elbow Three views were obtained. There has been some interval healing of the previously identified radial head fracture. Small joint effusion is identified. IMPRESSION: Healing fracture as above. Reviewed, Interpreted and Dictated by Leti Coyle MD Transcribed by Zara Jackson Authenticated and [facility]
== END 2023-10-05 23:59 ==
LOC: RAD 08:33
PROVIDERS: PCP Family Medicine; Visit Provider Orthopaedic Surgery
DX: M25.521 Pain in right elbow (principal)
CPT/HCPCS: 73080

== ENCOUNTER 2024-06-16 10:49 | Outpatient (CLI) | payer BC, OTHER, SELFPAY ==
--- NOTE | 2024-06-16 10:52 | US_ITS ---
PROCEDURE INFORMATION: Exam: US Left Breast, Complete Exam date and time: 06/16/2024 11:04 AM Age: 44 years old Clinical indication: Breast pain; Left. Left palpable abnormality in the retroareolar region TECHNIQUE: Imaging protocol: Complete ultrasound of all four quadrants of the left breast and the retroareolar regions, including ultrasound of the axilla when performed. COMPARISON: No relevant prior studies available. FINDINGS: ULTRASOUND: Breast ultrasound findings: Sonographic images of the left breast including the retroareolar region, all 4 quadrants and the axilla do not demonstrate any solid or cystic masses. No architectural distortion or acoustical shadowing. No skin thickening or axillary adenopathy. IMPRESSION: A skin marker should be placed over the area of palpable concern followed by a diagnostic unilateral mammogram with spot compression views for full evaluation of the patient's complaint of a palpable abnormality. ASSESSMENT: BI-RADS Category 0: Incomplete- Need Additional Imaging Evaluation
== END 2024-06-16 23:59 | disposition home or self-care (01) ==
LOC: RAD 10:50
PROVIDERS: PCP Family Medicine; Visit Provider Family Medicine
DX: N64.4 Mastodynia (principal)
CPT/HCPCS: 76641

== ENCOUNTER 2024-07-07 13:17 | Outpatient (CLI) | payer BC, OTHER, SELFPAY ==
[2024-07-07 13:39] LABS: Basophils # 0.1 K/mm3 (0-0.2); Basophils % 0.7 % (0.1-2.0); Eosinophils # 0.3 K/mm3 (0.0-0.4); Eosinophils % 2.7 % (0.1-12.0); Hematocrit 43.4 % (42.0-52.0); Hemoglobin 14.5 g/dL (14.1-18.0); Lymphocytes % 21.6 % (10-50); Mean Corpuscular HGB Conc 33.5 g/dL (31.8-35.4); Mean Corpuscular Hemoglobin 30.8 pg (27.0-31.2); Mean Platelet Volume 7.7 fl (7.4-10.4); Monocytes # 0.4 K/mm3 (0.1-1.0); Monocytes % 4.6 % (1.7-9.3); Neutrophils # 6.6 K/mm3 (1.8-7.8); Neutrophils % 70.5 % (37.0-80.0); Platelet Count 345 K/mm3 (142-424); Red Blood Count 4.72 M/mm3 (4.60-6.20); Red Cell Distribution Width 14.1 % (11.5-17.5); White Blood Count 9.4 K/mm3 (4.8-10.8)
[2024-07-07 14:18] LABS: Alanine Aminotransferase 22 U/L (12-78); Albumin Level 4.6 g/dl (3.5-5.0); Albumin/Globulin Ratio 2.2 (1.1-1.8); Alkaline Phosphatase 90 U/L (38-126); Anion Gap 13.4 mEq/L (5-15); Aspartate Amino Transferase 32 U/L (17-59); Bilirubin,Total 0.6 mg/dl (0.2-1.3); Blood Urea Nitrogen 9 mg/dl (9-20); Calcium 9.9 mg/dl (8.4-10.2); Carbon Dioxide 28 mmol/L (22.0-30.0); Chloride 104 mmol/L (98-107); Estimated Glomerular Filt Rate 121 ml/min (>60); GFR (African American) 147 ML/MIN (>60); Globulin 2.1 g/dL (1.3-3.2); Glucose 115 mg/dl (74-100); Potassium 4.4 mmoL/L (3.5-5.1); Sodium 141 mmol/L (136-145); Total Protein,Serum 6.7 g/dl (6.3-8.2)
--- NOTE | 2024-07-07 14:30 | MM_ITS ---
PROCEDURE INFORMATION: Exam: MG Left Diagnostic Breast Tomosynthesis Exam date and time: 07/07/2024 2:24 PM Age: 44 years old Clinical indication: Recalled from sonography 06/16/2024 for mammographic evaluation of pain and palpable abnormality in the left retroareolar region, which was sonographically negative. TECHNIQUE: Imaging protocol: Left Diagnostic tomosynthesis and 2D mammography including computer-aided detection (CAD) when performed. Unilateral or bilateral exam. Spot compression added. COMPARISON: None. FINDINGS: MAMMOGRAPHY: Breast mammogram findings: Breast composition: The breasts are almost entirely fatty. Mass: None. Architectural distortion: See below Calcifications: No suspicious calcifications. Asymmetric density: Corresponding to the palpable retroareolar concern, questionable 0.5 cm focal asymmetry and architectural distortion and possible distortion deformity of the overlying skin. Skin thickening: None. Axillary adenopathy: None. IMPRESSION: Patient will be recalled for additional diagnostic mammography with CC nipple in profile (and spot compression) and full field lateral for further evaluation of questionable retroareolar asymmetry and architectural distortion at the palpable retroareolar concern. ASSESSMENT: BI-RADS Category 0: Incomplete: Need Additional Imaging Evaluation and/or Prior Mammograms for Comparison
[2024-07-07 14:35] LABS: 25-OH Vitamin D, Total 48.8 ng/mL (30-100)
[2024-07-07 15:23] LABS: Iron 107 ug/dL (49-181)
[2024-07-07 15:33] LABS: Total Iron Binding Capacity 296 ug/dL (261-462)
[2024-07-07 16:00] LABS: Ferritin 33.4 ng/ml (17.9-464)
[2024-07-07 16:15] LABS: Vitamin B12 416 pg/mL (239-931)
[2024-07-10 15:10] LABS: Tissue Transglutaminase IgA Ab <2 U/mL (0-3); Tissue Transglutaminase IgG Ab <2 U/mL (0-5)
[2024-07-10 16:30] LABS: Pancreatic Elastase, Fecal 78 (>200)
== END 2024-07-07 23:59 | disposition home or self-care (01) ==
PROVIDERS: Nurse Practitioner Family; PCP Family Medicine; Visit Provider Nurse Practitioner Family
DX: R19.7 Diarrhea, unspecified (principal); K90.0 Celiac disease; R92.8 Other abnormal and inconclusive findings on diagnostic imaging of breast
CPT/HCPCS: 36415; 77061; 77065; 80053; 82306; 82607; 82656; 82728; 83516; 83540; 83550; 85025; G0279

== ENCOUNTER 2024-08-04 14:24 | Outpatient (CLI) | payer BC, OTHER, SELFPAY ==
--- NOTE | 2024-08-04 14:27 | MM_ITS ---
PROCEDURE INFORMATION: Exam: MG Left Diagnostic Breast Tomosynthesis Exam date and time: 08/04/2024 2:17 PM Age: 44 years old Clinical indication: Patient recalled on the basis of a screening mammogram for further evaluation; Left breast; asymmetry and questionable distortion TECHNIQUE: Imaging protocol: Left Diagnostic tomosynthesis and 2D mammography including computer-aided detection (CAD) when performed. Unilateral or bilateral exam. COMPARISON: 1. MG MM DIG MAMM DX UNILAT LT CAD 07/07/2024 2:24 PM 2. US BREAST LT COMPLETE 06/16/2024 11:04 AM FINDINGS: MAMMOGRAPHY: Breast composition: The breasts are almost entirely fatty. Breast mammogram findings: Digital diagnostic spot compression views of the left breast and 90 degree lateral view of the left breast demonstrate normal overlapping fibrofatty tissue structures. No architectural distortion. No breast tissue is seen. IMPRESSION: No mammographic evidence of malignancy. No breast tissue seen.Further evaluation of a palpable abnormality should be based on clinical grounds regardless of radiographic findings or lack thereof. ASSESSMENT: BI-RADS Category 1: Negative.
== END 2024-08-04 23:59 | disposition home or self-care (01) ==
LOC: RAD 14:25
PROVIDERS: PCP Family Medicine; Visit Provider Nurse Practitioner Family
DX: R92.8 Other abnormal and inconclusive findings on diagnostic imaging of breast (principal)
CPT/HCPCS: 77061; 77065; G0279

== ENCOUNTER 2024-08-10 07:40 | Outpatient (CLI) | payer BC, OTHER, SELFPAY ==
--- NOTE | 2024-08-10 07:41 | CT_ITS ---
FINAL REPORT TECHNIQUE: Pre- and postcontrast images of the abdomen were performed by computed tomography. This study was performed with technique to keep radiation doses as low as reasonably achievable. (ALARA). CLINICAL HISTORY: EPI/focus on pancreas FINDINGS: 7 mm nodule in the right lower lobe seen on series 7 image 19. This may be partially calcified. Lung bases are otherwise clear. The liver parenchyma is homogeneous. The gallbladder is present. The spleen is unremarkable. Adrenal glands are unremarkable. There is no hypervascular or hypovascular mass in the pancreas. There is no evidence of pancreatitis. There is no renal stone or hydronephrosis. No renal mass is identified. The GI tract is without acute abnormality. There is no lymphadenopathy or ascites. No acute osseous changes are seen. IMPRESSION: No acute intra-abdominal process. No pancreatic mass. 7 mm right lower lobe nodule is likely a granuloma. Consider 6-month follow-up chest CT, if indicated. Reviewed, Interpreted and Dictated by Leti Coyle MD Transcribed by Marielena Hicks Authenticated and [facility]
[2024-08-10] MEDS: IOPAMIDOL-370 (76%);100ML BOTTLE 75 ML IV (08:04)
[2024-08-10] MEDS: SODIUM CHLORIDE 0.9% 10ML SYR (RAD ONLY) 10 ML IV (08:04)
== END 2024-08-10 23:59 | disposition home or self-care (01) ==
LOC: RAD 07:41
PROVIDERS: PCP Family Medicine; Visit Provider Nurse Practitioner Family
DX: K86.81 Exocrine pancreatic insufficiency (principal)
CPT/HCPCS: 74170; Q9967

== ENCOUNTER 2024-09-11 09:18 | Day surgery (SDC) | payer BC, OTHER, SELFPAY ==
[2024-09-08 09:51] VITALS: BMI 22.1
[2024-09-11] MEDS: LACTATED RINGERS 1000ML 1,000 ML 50 ML IV (09:34)
[2024-09-11 09:37] VITALS: BP 126/79; PULSE 72; RESP 18; TEMP 36.2; O2SAT 99
[2024-09-11 09:46] VITALS: O2SAT 99
--- NOTE | 2024-09-11 09:47 | P.HP_ITS ---
History of Present Illness *Admission Date: 09/11/24 *Reason for visit:: GERD, history of celiac disease/history of EPI *History of present illness: Mr. Higgins is a 44-year-old gentleman who is here for diagnostic EGD. He does have a history of longstanding GERD which had worsened over the last couple of years and has a known hiatal hernia. He was diagnosed with celiac disease in [facility] more than 10 years ago and has been gluten-free. He was recently diagnosed with EPI and his bowel function has improved since beginning Creon. The examination is deemed medically necessary for diagnostic EGD. The patient has been seen, interviewed and examined prior to the procedure by both myself and the anesthesia provider. [facility] Disclaimer: The information contained in this section may have been updated after the patient was seen, as this information can be updated by other users. 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 Episodic migraine Candidiasis of skin Raynauds disease (Unknown) Surgical History History of intestinal surgery History of dental surgery Family History Other Cancer Coronary artery disease Diabetes Glaucoma Hyperlipidemia Hypertension Social History Smoking Status: Never smoker alcohol intake: former substance use type: denies use current occupational status: employed Travel in the last 8 weeks: None household members: spouse Have you lived/traveled outside US in past 30 days?: No Contact w/someone who lives/traveled outside US past 30 days?: No Exposure to someone with infectious disease in past 14 days?: No Do you have a fever (greater than 100.4 F or 38 C)?: No Have you tested positive for COVID-19: No Exposed to someone with COVID-19 in past 14 days?: No Do you have a sore throat?: No Do you have a cough?: No Do you have any weakness?: No Do you have any diarrhea?: No Are you experiencing any unusual bleeding?: No Do you have any muscle aches/pain?: No Do you have any abdominal pain?: No Are you experiencing loss of taste or smell?: No Other Medical History Have you received the Flu Vaccine for this season: Yes Have you received the Pneumonia Vaccine: No Review of Systems Review of Systems Review of systems (narrative): Negative *Cardiovascular Comments: Negative *Gastrointestinal Comments: Negative *Genitourinary Comments: Negative *Musculoskeletal Comments: Negative *Neurologic Comments: Negative Meds Home Medications and Allergies Home Medications ?Medication ?Instructions ?Recorded ?Confirmed ?Type esomeprazole magnesium 40 mg 40 mg PO DAILY 08/26/23 09/08/24 History capsule,delayed release (Nexium) cetirizine 10 mg tablet (Zyrtec) 10 mg PO DAILY PRN Allergy Symptoms 10/18/23 09/08/24 History galcanezumab-gnlm 120 mg/mL 120 mg SQ QMONTH Migraine Headache 04/17/24 09/08/24 Rx subcutaneous pen injector #1 mL (Emgality Pen) eisesh-mtloehel-nsymuad 1 cap PO TID #270 caps 07/12/24 09/08/24 Rx 36,000-114,000-180,000 unit capsule,delay rel (Creon) ubrogepant 100 mg tablet (Ubrelvy) 100 mg PO NEEDED PRN Migraine 09/08/24 09/08/24 History Headache New Prescriptions to Start Prescriptions: Allergies Allergy/AdvReac Type Severity Reaction Status Date / Time tetracycline (TETRACYCLINE) Allergy Intermediate Hives Verified 09/11/24 09:36 Exam Data for Last 24 hours Vital signs and Labs for Last 24 Hours: Temp Pulse Resp BP Pulse Ox O2 Del Method O2 Flow Rate 97.1 F L 72 18 126/79 99 Nasal Cannula 5 09/11/24 09:37 09/11/24 09:37 09/11/24 09:37 09/11/24 09:37 09/11/24 09:37 09/11/24 09:46 09/11/24 09:46 I & O for Last 24 hours: Intake & Output 09/08/24 09/09/24 09/10/24 09/11/24 23:59 23:59 23:59 23:59 Weight 150 lb *Routine HEENT Exam Head: Present normocephalic Eye: Present EOMI and PERRL ENT: Present mucous membranes moist *Routine Neck Exam Neck: Present supple *Routine Respiratory Exam Respiratory: Present CTA bilaterally *Routine Cardiovascular Exam Cardiovascular: Present RRR *Routine Abdominal Exam Abdominal: Present soft and normoactive bowel sounds; Absent tenderness *Routine Rectal Exam Rectal:: deferred *Routine Genitalia Exam Genitalia:: deferred *Routine Extremities Exam Extremities: Absent cyanosis, clubbing or edema *Routine Skin Exam Skin: Present warm; Absent rash *Routine Neurological Exam Neurological: Present alert and oriented X3 Assessment and Plan *Assessment and plan (1) Exocrine pancreatic insufficiency: Status: Acute Category: Medical Code(s): K86.81 - Exocrine pancreatic insufficiency (2) Celiac disease: Status: Chronic Category: Medical Code(s): K90.0 - Celiac disease (3) GERD (gastroesophageal reflux disease): Status: Acute Category: Medical Code(s): K21.9 - Gastro-esophageal reflux disease without esophagitis (4) History of hiatal hernia: Status: Acute Category: Medical Code(s): Z87.19 - Personal history of other diseases of the digestive system Plan A/P: 1. GERD with history of celiac disease and EPI is the preprocedural diagnosis. The patient will be anesthetized/sedated using MAC sedation. The patient has been seen and examined. Cardiac and lung assessment prior to the examination is stable. Proceed with planned upper endoscopy
--- NOTE | 2024-09-11 09:49 | HMH.PROCNOTE ---
[facility] Procedure Note Date: 09/11/24 Time: 09:58 Procedure Note:: Upper Endoscopy Procedure Report: Esophagogastroduodenoscopy with cold biopsies Endoscopost: Thierno Villa II, MD Referring Physician: Francesco Monteiro MD Date of Procedure: September 11, 2024 Equipment: Olympus GIF 190 standard upper endoscope Sedation: MAC sedation Indications: Mr. Higgins is a 44-year-old gentleman who is here for diagnostic upper endoscopy. The patient was diagnosed with celiac disease about 10 years ago after EGD in [facility] ([facility] He has been gluten-free. The patient has struggled with intermittent small bowel obstructions and has had surgery 3 times. He also has had intermittent diarrhea and urgency with baseline constipation/incomplete defecation. He has had moderate bloating, gassiness, belching and reflux. The reflux has worsened. The patient did see Estefania PRIEST in the office and had fecal elastase testing and his fecal elastase was 78 mcg/g indicative of moderate EPI. He was placed on Creon and his bloating, reflux and abdominal discomfort significantly improved. He does have a known history of a hiatal hernia. He does state that his paternal uncle had throat cancer and a maternal uncle had pancreatic cancer. The patient did have a colonoscopy in 2022 (Kwabena Lin MD [facility] in [place]). The patient's recent CAT scan from 08/10/2024 showed a normal-appearing pancreas. There was a small 7 mm right lower lung lobe granuloma. Procedure: Prior to the procedure, a history and physical exam was performed, and patient's medications and allergies were reviewed. The risks, benefits and alternatives of the sedation and procedure were discussed with the patient. All questions were answered and informed consent was obtained. The patient was brought to the procedure room. Patient identification and proposed procedure were verified by the physician and the nurse. The patient was placed in a left lateral decubitus position and the scope was passed under direct vision. Throughout the procedure, the patient's blood pressure, pulse, and oxygen saturations were monitored continuously. The upper GI endoscopy was accomplished without difficulty. The patient tolerated the procedure well. Findings: The scope was passed directly into the upper esophagus and advanced to the third portion of the duodenum. The post bulbar duodenum and duodenal bulb were normal with normal mucosa and conniventes. There was no scalloping of the conniventes. Cold biopsies were taken from the post bulbar duodenum and duodenal bulb for celiac disease. The scope was withdrawn through a normal duodenal bulb and pylorus into the stomach. There was mild linear reactive gastropathy of the antrum. The body and fundus of the stomach were normal. Upon retroflexion there was no hiatal hernia. Biopsies were taken from the antrum. The scope was then withdrawn into the esophagus. There was no evidence of reflux esophagitis or Zimmerman's. The remainder of the esophageal mucosa was normal. Impression: 1. Mild linear reactive gastropathy of antrum Plan: I will follow-up the biopsies. The patient is much clinically improved with treatment for EPI with Creon. I will discuss the findings with the patient and family.
[2024-09-11 10:02] VITALS: BP 103/69; PULSE 64; RESP 16; TEMP 36.2; O2SAT 95
[2024-09-11 10:12] VITALS: BP 97/16; PULSE 57; RESP 16; O2SAT 96
[2024-09-11 10:22] VITALS: BP 117/68; PULSE 63; RESP 17; O2SAT 95
[2024-09-11 10:32] VITALS: BP 106/69; PULSE 61; RESP 18; O2SAT 97
== END 2024-09-11 11:05 | disposition home or self-care (01) ==
PROVIDERS: PCP Family Medicine; Visit Provider Internal Medicine Gastroenterology
PROC: 0DJ08ZZ Inspection of Upper Intestinal Tract, Via Natural or Artificial Opening Endoscopic (ICD-10-PCS; CPT 43239; principal; 2024-09-11 10:00)
DX: K86.81 Exocrine pancreatic insufficiency (principal); K90.0 Celiac disease; K21.9 Gastro-esophageal reflux disease without esophagitis; Z87.19 Personal history of other diseases of the digestive system; K31.9 Disease of stomach and duodenum, unspecified
CPT/HCPCS: 43239; J7120

== ENCOUNTER 2025-04-02 15:09 | Outpatient (CLI) | payer BC, OTHER, SELFPAY ==
[2025-04-02 16:19] LABS: Hematocrit 40.0 % (42.0-52.0); Hemoglobin 13.4 g/dL (14.1-18.0); Immature Granulocytes % 0.1 %; Mean Corpuscular HGB Conc 33.5 g/dL (31.8-35.4); Mean Corpuscular Hemoglobin 30.0 pg (27.0-31.2); Mean Corpuscular Volume 89.7 fl (80-94); Nucleated Red Blood Cells % 0.3 %; Platelet Count 343 K/mm3 (142-424); Red Blood Count 4.46 M/mm3 (4.60-6.20); Red Cell Distribution Width-SD 44.9 fL; White Blood Count 7.7 K/mm3 (4.8-10.8)
[2025-04-02 18:06] LABS: 25-OH Vitamin D, Total 46.3 ng/mL (30-100)
[2025-04-02 19:01] LABS: Albumin Level 4.7 g/dl (3.5-5.0); Chloride 104 mmol/L (98-107); Potassium 4.9 mmoL/L (3.5-5.1); Sodium 141 mmol/L (136-145)
[2025-04-02 19:04] LABS: Alanine Aminotransferase 19 U/L (12-78); Albumin/Globulin Ratio 2.0 (1.1-1.8); Alkaline Phosphatase 91 U/L (38-126); Anion Gap 13.9 mEq/L (5-15); Aspartate Amino Transferase 30 U/L (17-59); Bilirubin,Total 0.2 mg/dl (0.2-1.3); Blood Urea Nitrogen 12 mg/dl (9-20); Carbon Dioxide 28 mmol/L (22.0-30.0); Creatinine,Serum 0.60 mg/dl (0.66-1.25); Estimated Glomerular Filt Rate 144 ml/min (>60); GFR (African American) 175 ML/MIN (>60); Globulin 2.4 g/dL (1.3-3.2); Iron 72 ug/dL (49-181); Total Protein,Serum 7.1 g/dl (6.3-8.2)
[2025-04-02 19:05] LABS: Calcium 9.7 mg/dl (8.4-10.2); Glucose 79 mg/dl (74-100)
[2025-04-02 19:14] LABS: Total Iron Binding Capacity 294 ug/dL (261-462)
[2025-04-02 19:54] LABS: Ferritin 29.4 ng/ml (17.9-464)
[2025-04-02 20:23] LABS: Vitamin B12 813 pg/mL (239-931)
== END 2025-04-02 23:59 | disposition home or self-care (01) ==
LOC: LAB 15:10
PROVIDERS: PCP Family Medicine; Visit Provider Nurse Practitioner Family
DX: K90.0 Celiac disease (principal)
CPT/HCPCS: 36415; 80053; 82306; 82607; 82728; 83540; 83550; 85025